=== PATIENT | female | born 1985 | race Caucasian/White ===

== ENCOUNTER 2019-07-23 02:17 | Emergency (ER) | payer SELFPAY ==
[~2019-07-23] VITALS: Ht 162.6 cm; Wt 59.0 kg
[2019-07-23 02:29] VITALS: BP 132/85
[2019-07-23] MEDS ORDERED: LIDOCAINE 1%-EPI 1:100,000 20 ML VIAL ONE (02:38)
[2019-07-23] MEDS ORDERED: CEFTRIAXONE 1 G VIAL IM ONE (03:00)
[2019-07-23] MEDS ORDERED: SULFAMETH/TRIMETH 800/160 MG 1 UDTAB TABLET PO ONE (03:00)
[2019-07-23] MEDS ORDERED: LIDOCAINE 1%-EPI 1:100,000 50 ML VIAL IJ ONE (03:00)
[2019-07-23] MEDS ORDERED: CEFTRIAXONE 1 G VIAL ONE (03:01)
[2019-07-23] MEDS ORDERED: SULFAMETH/TRIMETH 800/160 MG 1 UDTAB TABLET ONE (03:01)
[2019-07-23] MEDS ORDERED: LIDOCAINE /MPF 1% VIAL 5 ML VIAL ONE (03:03)
== END 2019-07-23 03:11 | disposition home or self-care (01) ==
LOC: ER 02:22
DX: L02.416 Cutaneous abscess of left lower limb (principal); L03.116 Cellulitis of left lower limb; F19.10 Other psychoactive substance abuse, uncomplicated
CPT/HCPCS: 10060; 76882; 96372; 99284; A6407; J0696; J3490 ×3